=== PATIENT | female | born 1995 | race Caucasian/White ===

== ENCOUNTER → 2024-05-28 07:46 | Outpatient (REF) | payer OTHER, SELFPAY | LOC: PNTC 07:46 | PROVIDERS: ATTENDING PHYSICIAN Obstetrics & Gynecology | DX: Z29.13 Encounter for prophylactic Rho(D) immune globulin (principal); O36.0199 Maternal care for anti-D [Rh] antibodies, unspecified trimester, other fetus | CPT/HCPCS: 36415; 86850; 86900; 86901; J2790 ==

== ENCOUNTER 2024-08-15 19:37 | Inpatient (IN) | payer OTHER, SELFPAY ==
[2024-08-15 20:02] VITALS: BMI 23.3
[2024-08-15 20:17] VITALS: BP 113/68
[2024-08-15 20:42] LABS: % Basophils 0.3 % (0-2); % Eosinophils 0.2 % (0-6); % Immature Granulocytes 1.1 % (0-0.5); % Lymphocytes 14.7 % (20.5-51.1); % Monocytes 7.4 % (1.7-9.3); % Neutrophils 76.3 % (42.2-75.2); Absolute Immature Granulocytes 0.1 10^3/uL (0-0.05); Absolute Lymphocytes 1.8 10^3/uL (1.2-3.4); Absolute Monocytes 0.9 10^3/uL (0.1-0.6); Absolute Neutrophils 9.2 10^3/uL (1.4-6.5); Hematocrit 37.8 % (37.0-47.0); Hemoglobin 13.2 g/dL (12.0-16.0); Mean Corp Hgb Conc. 34.9 g/dL (33.0-37.0); Mean Corpuscular Hgb 31.5 pg (27.0-31.0); Mean Corpuscular Volume 90.2 fL (81.0-99.0); Mean Platelet Volume 10.5 fL (7.4-10.4); Nucleated Red Blood Cells % 0 %; Platelet Count 231 10^3/uL (130-400); Red Blood Cell Count 4.19 10^6/uL (4.20-5.40); Red Cell Dist. Width 12.6 % (11.5-14.5); White Blood Cell Count 12.1 10^3/uL (4.8-10.8)
[2024-08-15] MEDS: CYTOTEC 25 MICROGRAM VAG (21:05)
[2024-08-15] MEDS: LR 1000 IV ×2 (22:16→23:44)
[2024-08-16] MEDS: LR 1000 IV (04:12)
[2024-08-16] MEDS: SUBLIMAZE 100 MCG EPIDURAL (09:49)
[2024-08-16] MEDS: FENTANYL/BUPIVACAINE 100 EPIDURAL (09:49)
[2024-08-16] MEDS: MOTRIN 600 MG PO (17:18)
[2024-08-17 04:48] LABS: Hemoglobin 13.2 g/dL (12.0-16.0)
[2024-08-17] MEDS: MOTRIN 600 MG PO ×2 (05:34→20:43)
[2024-08-17] MEDS: PRENATAL PLUS 1 TABLET PO (09:00)
[2024-08-17] MEDS: SENOKOT-S 1 TABLET PO (09:00)
[2024-08-17] MEDS: RHOGAM IM (15:51)
[2024-08-17] MEDS: RHOGAM 300 MCG IM (21:16)
[2024-08-18] MEDS: PRENATAL PLUS 1 TABLET PO (09:53)
[2024-08-18] MEDS: SENOKOT-S 1 TABLET PO (09:53)
[2024-08-20 15:48] LABS: Syphilis/T. pallidum Ab Reflex Negative (Negative)
== END 2024-08-18 14:17 | disposition home or self-care (01) | DRG 807 ==
LOC: LDRP 19:37
PROVIDERS: Obstetrics & Gynecology; ADMITTING PHYSICIAN Student in an Organized Health Care Education/Training Program; FAMILY PHYSICIAN Family Medicine
PROC: 3E0P7VZ Introduction of Hormone into Female Reproductive, Via Natural or Artificial Opening (ICD-10-PCS; 2024-08-15)
PROC: 0KQM0ZZ Repair Perineum Muscle, Open Approach (ICD-10-PCS; 2024-08-16)
PROC: 10E0XZZ Delivery of Products of Conception, External Approach (ICD-10-PCS; 2024-08-16)
PROC: 10907ZC Drainage of Amniotic Fluid, Therapeutic from Products of Conception, Via Natural or Artificial Opening (ICD-10-PCS; 2024-08-16)
PROC: 4A1HXCZ Monitoring of Products of Conception, Cardiac Rate, External Approach (ICD-10-PCS; 2024-08-16)
PROC: 3E0234Z Introduction of Serum, Toxoid and Vaccine into Muscle, Percutaneous Approach (ICD-10-PCS; 2024-08-17)
DX: O70.1 Second degree perineal laceration during delivery (principal); Z37.0 Single live birth; Z3A.39 39 weeks gestation of pregnancy; O69.81X0 Labor and delivery complicated by cord around neck, without compression, not applicable or unspecified; O26.893 Other specified pregnancy related conditions, third trimester; Z67.41 Type O blood, Rh negative
CPT/HCPCS: 36415; 85014; 85018; 85025; 85461; 86780; 86850; 86870; 86900; 86901; J2790